=== PATIENT | male | born 1970 | race Caucasian/White ===

== ENCOUNTER 2016-11-16 18:00 | Emergency (ER) | payer BC ==
[~2016-11-16] VITALS: Ht 167.6 cm; Wt 104.3 kg
[2016-11-16 18:30] VITALS: BP 156/85
--- NOTE | 2016-11-16 18:39 | PHYS DOC ---
Past Medical History Past Medical History: Diabetes-Type II Past Surgical History: Knee Replacement Alcohol Use: None Drug Use: None Adult General Chief Complaint Chief Complaint: LACERATION/AVULSION [facility] HPI Patient is a 45 year old male presents to the emergency department with complaints of laceration to the forehead after being hit in the head with a baseball. Patient states he was at a baseball game when an 11-year-old hit a ball that struck him in the left side of the forehead. Patient states he sustained laceration. Hemostasis obtained prior to arrival. Patient's family expresses concern as the patient had a recent eye surgery secondary to a ruptured blood vessel in the eye one month ago. Patient reports no visual disturbance or eye pain at this time. Patient reports the ball did not strike him in the eye or near the globe but on the forehead only. Tetanus a musician up -to-date Review of Systems Review of Systems Constitutional: Denies fever or chills [] Eyes: Denies change in visual acuity, redness, or eye pain [] HENT: Denies nasal congestion or sore throat [] Respiratory: Denies cough or shortness of breath [] Cardiovascular: No additional information not addressed in HPI [] GI: Denies abdominal pain, nausea, vomiting, bloody stools or diarrhea [] : Denies dysuria or hematuria [] Musculoskeletal: Denies back pain or joint pain [] Integument: Laceration Neurologic: Denies headache, focal weakness or sensory changes [] Endocrine: Denies polyuria or polydipsia [] Current Medications Current Medications Current Medications Medications (Trade) Dose Ordered Sig/Denisse Start Time Stop Time Status Last Admin Dose Admin Lidocaine/ Epinephrine (Let Topical) 3 ml 1X ONCE 11/16/16 18:45 11/16/16 18:46 DC 11/16/16 19:01 3 ML Lidocaine/ Epinephrine (Xylocaine 2%-Epi 1:100,000) 20 ml 1X ONCE 11/16/16 19:15 11/16/16 19:16 DC 11/16/16 19:15 20 ML Neomycin/ Polymyxin/ Bacitracin (Triple Antibiotic Ointment) 1 pkt 1X ONCE 11/16/16 20:00 11/16/16 20:01 Allergies Allergies Allergies Coded Allergies Type Severity Reaction Last Updated Verified No Known Drug Allergies 12/27/14 No Physical Exam Physical Exam Constitutional: Well developed, well nourished, no acute distress, non-toxic appearance. [] HENT: Normocephalic, atraumatic, bilateral external ears normal, oropharynx moist, no oral exudates, nose normal. Left side of the forehead just above the brow there is a 3 cm stellate partial thickness laceration, hemostasis obtained prior to arrival. No visual deformity or palpable step-off. [] Eyes: PERRLA, EOMI, conjunctiva normal, no discharge, mild swelling to the upper and lower lid without ecchymosis or erythema. Atraumatic. [] Neck: Normal range of motion, no tenderness, supple, no stridor. [] Cardiovascular:Heart rate regular rhythm, no murmur [] Lungs & Thorax: Bilateral breath sounds clear to auscultation [] Abdomen: Bowel sounds normal, soft, no tenderness, no masses, no pulsatile masses. [] Skin: Warm, dry, no erythema, no rash. [] Back: No tenderness, no CVA tenderness. [] Extremities: No tenderness, no cyanosis, no clubbing, ROM intact, no edema. [] Neurologic: Alert and oriented X 3, normal motor function, normal sensory function, no focal deficits noted. [] Psychologic: Affect normal, judgement normal, mood normal. [] Current Patient Data Vital Signs Vital Signs Date Time Temp Pulse Resp B/P (MAP) Pulse Ox O2 Delivery O2 Flow Rate FiO2 11/16/16 18:30 98.9 79 18 95 Room Air 98.9 EKG EKG [] Radiology/Procedures Radiology/Procedures [][facility] [address] [place], [place] [id number] IMAGING REPORT Signed PATIENT: KAROLYN GARZA ACCOUNT: [id number] : 1970 LOCATION: ER AGE: 45 SEX: M EXAM STATUS: REG ER ORD. PHYSICIAN: VIVIENNE NICOLE APRN REASON: hit in left forehead with baseball PROCEDURE: CT ORBITS WO CONTRAST EXAM: Head and orbital CT without contrast. HISTORY: Trauma. TECHNIQUE: Computed tomographic images of the head and orbits were obtained without contrast. *One or more of the following individualized dose reduction techniques were utilized for this examination: 1. Automated exposure control. 2. Adjustment of the mA and/or kV according to patient size. 3. Use of iterative reconstruction technique. COMPARISON: None. FINDINGS: There is no acute or subacute intracranial hemorrhage. There is no mass effect or midline shift. There is no hydrocephalus. There are scattered areas of hypodensity within the cerebral white matter, a nonspecific finding. There is a left frontal scalp hematoma and focus of gas due to a superimposed laceration. No foreign body is seen. There is also a suspected right parietal scalp hematoma. No fracture is seen. The globes, lenses, extraocular muscles and optic nerves are unremarkable. There is a right mary bullosa. There is leftward nasal septal deviation. The temporomandibular joints are intact. The mastoid air cells are clear. IMPRESSION: 1. No acute intracranial finding. 2. Left frontal scalp hematoma and laceration. No foreign body or underlying fracture is seen. 3. Suspected posterior right parietal scalp hematoma. 4. Scattered areas of hypodensity within the cerebral white matter, a nonspecific finding. This is most likely due to chronic small vessel disease. However, this is advanced for patient age. The possibility of a demyelinating etiology is not completely excluded. Electronically signed by: Rachel Mcclain MD (11/16/2016 6:56 PM) [facility] DICTATED and SIGNED BY: RACHEL MCCLAIN MD DATE: 11/16/161853 CC: NO PCP; NON,STAFF; VIVIENNE NICOLE APRN ~ General: Left brow laceration anesthetized with 3 mL of 2% lidocaine with epinephrine. Wound was cleansed with Betadine and normal saline, copiously irrigated. The laceration was repaired with 6-0 Ethilon #12 simple sutures. Patient tolerated the procedure well. Wound dressed with Neosporin and a bandage. Course & Med Decision Making Course & Med Decision Making Pertinent Labs and Imaging studies reviewed. (See chart for details) [] Dragon Disclaimer Dragon Disclaimer This electronic medical record was generated, in whole or in part, using a voice recognition dictation system. Departure Departure Impression: Primary Impression: Facial laceration Additional Impression: Closed head injury Disposition: 01 HOME, SELF-CARE Condition: STABLE Referrals: MIMI MERIDA (PCP) Patient Instructions: Facial Laceration Additional Instructions: Least follow-up tomorrow with your order picker. Suture removal in 7 days at your primary care provider's office. Please return to the emergency Department for new symptoms or concerns or worsening of current condition. Problem Qualifiers Primary Impression: Facial laceration Encounter type: initial encounter Qualified Codes: S01.81XA - Laceration without foreign body of other part of head, initial encounter Additional Impression: Closed head injury Encounter type: initial encounter Qualified Codes: S09.90XA - Unspecified injury of head, initial encounter VIVIENNE NICOLE APRN Nov 16, 2016 18:39
[2016-11-16] MEDS ORDERED: LIDOCAINE/EPI/TETRACAINE TOPICAL GEL 3 ML. TP ONE (18:45)
--- NOTE | 2016-11-16 18:59 | RAD ---
EXAM: Head and orbital CT without contrast. HISTORY: Trauma. TECHNIQUE: Computed tomographic images of the head and orbits were obtained without contrast. *One or more of the following individualized dose reduction techniques were utilized for this examination: 1. Automated exposure control. 2. Adjustment of the mA and/or kV according to patient size. 3. Use of iterative reconstruction technique. COMPARISON: None. FINDINGS: There is no acute or subacute intracranial hemorrhage. There is no mass effect or midline shift. There is no hydrocephalus. There are scattered areas of hypodensity within the cerebral white matter, a nonspecific finding. There is a left frontal scalp hematoma and focus of gas due to a superimposed laceration. No foreign body is seen. There is also a suspected right parietal scalp hematoma. No fracture is seen. The globes, lenses, extraocular muscles and optic nerves are unremarkable. There is a right mary bullosa. There is leftward nasal septal deviation. The temporomandibular joints are intact. The mastoid air cells are clear. IMPRESSION: 1. No acute intracranial finding. 2. Left frontal scalp hematoma and laceration. No foreign body or underlying fracture is seen. 3. Suspected posterior right parietal scalp hematoma. 4. Scattered areas of hypodensity within the cerebral white matter, a nonspecific finding. This is most likely due to chronic small vessel disease. However, this is advanced for patient age. The possibility of a demyelinating etiology is not completely excluded. Electronically signed by: Rachel Madrid MD (11/16/2016 6:56 PM) [facility]
[2016-11-16] MEDS ORDERED: LIDOCAINE 2%/EPI 1:100,000 20 ML VIAL. IJ ONE (19:15)
[2016-11-16] MEDS ORDERED: NEOMY/BACITR/POLYMYXIN OINT PACKET. TP ONE (20:00)
== END 2016-11-16 20:12 | disposition home or self-care (01) ==
LOC: ER 18:00
DX: S01.81XA Laceration without foreign body of other part of head, initial encounter (principal); S09.90XA Unspecified injury of head, initial encounter; E11.9 Type 2 diabetes mellitus without complications; Z96.659 Presence of unspecified artificial knee joint; W21.03XA Struck by baseball, initial encounter; Y93.64 Activity, baseball; Y92.89 Other specified places as the place of occurrence of the external cause; Y99.8 Other external cause status
CPT/HCPCS: 12013; 70450; 70480; 99284; J3490